=== PATIENT | female | born 1970 | race Two or more races ===

== ENCOUNTER 2020-11-25 22:04 | Emergency (ER) | payer SELFPAY ==
[~2020-11-25] VITALS: Ht 157.5 cm; Wt 55.0 kg
[2020-11-25] MEDS ORDERED: ONDANSETRON 4MG ODT PO STA (23:24)
[2020-11-25] MEDS ORDERED: ACETAMINOPHEN 325MG TABLET PO STA (23:24)
[2020-11-25 23:56] LABS: BASOPHILS % 0.7 % (0.0-2.0); EOSINOPHILS % 0.1 % (0.0-5.0); HEMATOCRIT. 38.7 % (36.0-48.0); LYMPHOCYTES % 9.6 % (20.0-50.0); MEAN CORPUSCULAR VOLUME 92.2 fL (81.0-99.0); MEAN PLATELET VOLUME 9.5 fl (7.4-10.4); MONOCYTES % 6.3 % (2.0-8.0); NEUTROPHILS % 83.3 % (40.0-76.0); PLATELET 151 x1000/uL (130-400); RED BLOOD CELL COUNT 4.19 mill/uL (4.2-5.4); RED CELL DISTRIBUTION WIDTH 16.1 % (11.6-14.6)
[2020-11-26 00:02] LABS: CHLORIDE 103 mEq/L (98-107)
[2020-11-26 00:07] LABS: ETHANOL BLOOD < 10 mg/dL
[2020-11-26] MEDS ORDERED: HYDROCODONE/ACETAMINOPHEN 5/325MG TABLET PO ONE (02:15)
[2020-11-26] MEDS ORDERED: IBUP-2028 MT (02:22)
[2020-11-26 02:23] LABS: *AMPHETAMINES SCREEN URINE PRESUMTIVE POSITIVE (NEGATIVE); *BARBITURATES SCREEN URINE NEGATIVE (NEGATIVE); *BENZODIAZEPINES SCREEN URINE NEGATIVE (NEGATIVE); *COCAINE SCREEN URINE NEGATIVE (NEGATIVE); METHADONE URINE SCREEN NEGATIVE (NEGATIVE); OPIATES URINE SCREEN NEGATIVE (NEGATIVE); PHENCYCLIDINE URINE SCREEN NEGATIVE (NEGATIVE)
[2020-11-26 02:24] LABS: CANNABINOID URINE SCREEN PRESUMTIVE POSITIVE (NEGATIVE)
[2020-11-26 03:08] VITALS: BP 96/61
== END 2020-11-26 03:10 | disposition home or self-care (01) ==
LOC: ER 22:04
DX: T43.621A Poisoning by amphetamines, accidental (unintentional), initial encounter (principal); R53.1 Weakness; K85.90 Acute pancreatitis without necrosis or infection, unspecified; F15.129 Other stimulant abuse with intoxication, unspecified; R00.0 Tachycardia, unspecified; R03.0 Elevated blood-pressure reading, without diagnosis of hypertension; F15.180 Other stimulant abuse with stimulant-induced anxiety disorder; F25.0 Schizoaffective disorder, bipolar type; Y92.59 Other trade areas as the place of occurrence of the external cause
CPT/HCPCS: 36415; 71045; 80053; 80305; 80320; 81025; 83690; 85025; 93005; 99285; Q0162; G0480

== ENCOUNTER 2021-02-17 22:20 | Emergency (ER) | payer SELFPAY ==
[~2021-02-17] VITALS: Ht 165.1 cm; Wt 52.2 kg
[~2021-02-17 22:20] MED LIST: IBUP-2028 MT
[2021-02-17] MEDS ORDERED: KETOROLAC 30MG/ML VIAL IV STA (23:55)
[2021-02-18 03:16] LABS: BASOPHILS % 0.9 % (0.0-2.0); EOSINOPHILS % 0.8 % (0.0-5.0); HEMATOCRIT. 40.6 % (36.0-48.0); HEMOGLOBIN. 13.6 g/dL (12.0-16.0); MEAN CORPUSCULAR HEMOGLOBIN 30.1 pg (28.0-32.0); MEAN CORPUSCULAR VOLUME 89.6 fL (81.0-99.0); MEAN PLATELET VOLUME 8.2 fl (7.4-10.4); MONOCYTES % 5.1 % (2.0-8.0); NEUTROPHILS % 70.2 % (40.0-76.0); PLATELET 457 x1000/uL (130-400); RED BLOOD CELL COUNT 4.53 mill/uL (4.2-5.4); RED CELL DISTRIBUTION WIDTH 16.8 % (11.6-14.6)
[2021-02-18 03:18] LABS: CLARITY URINE CLEAR (CLEAR); COLOR URINE YELLOW (YELLOW); KETONES URINE NEGATIVE (NEGATIVE); LEUKOCYTE ESTERASE URINE NEGATIVE (NEGATIVE); NITRITE URINE NEGATIVE (NEGATIVE); OCCULT BLOOD URINE NEGATIVE (NEGATIVE); PROTEIN URINE NEGATIVE (NEGATIVE); SPECIFIC GRAVITY URINE 1.016 (1.005-1.030); UROBILINOGEN URINE 0.2 E.U./dL (0.2-1.0)
[2021-02-18 03:22] LABS: PROTHROMBIN TIME 10.9 sec (9.6-11.0)
[2021-02-18 03:25] LABS: CHLORIDE 101 mEq/L (98-107)
[2021-02-18 03:31] LABS: ETHANOL BLOOD < 10 mg/dL
[2021-02-18 04:01] LABS: *BENZODIAZEPINES SCREEN URINE NEGATIVE (NEGATIVE); *COCAINE SCREEN URINE NEGATIVE (NEGATIVE); METHADONE URINE SCREEN NEGATIVE (NEGATIVE); OPIATES URINE SCREEN NEGATIVE (NEGATIVE)
[2021-02-18 04:02] LABS: *AMPHETAMINES SCREEN URINE PRESUMTIVE POSITIVE (NEGATIVE); *BARBITURATES SCREEN URINE NEGATIVE (NEGATIVE); CANNABINOID URINE SCREEN PRESUMTIVE POSITIVE (NEGATIVE); PHENCYCLIDINE URINE SCREEN PRESUMTIVE POSITIVE (NEGATIVE)
[2021-02-18] MEDS ORDERED: IOHEXOL-300 100 ML BOTTLE ONE (04:39)
[2021-02-18 05:56] VITALS: BP 100/80
== END 2021-02-18 05:58 | disposition home or self-care (01) ==
LOC: ER 22:20
DX: K86.3 Pseudocyst of pancreas (principal); F15.10 Other stimulant abuse, uncomplicated; F14.10 Cocaine abuse, uncomplicated; F16.10 Hallucinogen abuse, uncomplicated; F12.10 Cannabis abuse, uncomplicated; F10.20 Alcohol dependence, uncomplicated; Y90.0 Blood alcohol level of less than 20 mg/100 ml
CPT/HCPCS: 36415; 74177; 80053; 80305; 80320; 81003; 83690; 85025; 85610; 96374; 99284; J1885; Q9967; G0480